=== PATIENT | male | born 1970 | race Two or more races ===

== ENCOUNTER 2016-08-20 21:46 | Emergency (ER) | payer OTHER ==
[~2016-08-20] VITALS: Ht 175.3 cm; Wt 135.6 kg
--- NOTE | 2016-08-20 21:57 | Emergency Room Report ---
History of Present Illness General Chief Complaint: Alcohol Intoxication Source: Patient, EMS Present Illness HPI Is a 46-year-old male with a history of alcohol abuse. He was picked up by EMS for alcohol intoxication. Initial history is limited because of intoxication. When he was more clinically sober, and is to drinking heavily. Does want to quit. Does not want to go to senior care or want senior care service. There is no trauma. He has been to multiple other hospitals based on the fact that he has heavy freedman, armbands, and EKG leads on him. Allergies: Coded Allergies: No Known Allergies (Unverified , 08/20/16) Patient History Past Medical History: see triage record, old chart reviewed Past Surgical History: other - laparotomy Pertinent Family History: none Social History: Reports: alcohol use Immunizations: other Reviewed Nursing Documentation: PMH: Agreed, PSxH: Agreed Nursing Documentation-PMH Hx Diabetes: Yes Review of Systems Eye: Denies: blurred vision, eye pain ENT: Denies: ear pain, nose congestion, throat swelling Respiratory: Denies: cough, shortness of breath Cardiovascular: Denies: chest pain, palpitations Gastrointestinal: Denies: abdominal pain, diarrhea, nausea, vomiting Musculoskeletal: Denies: back pain, joint pain Skin: Denies: rash Neurological: Denies: headache, numbness Endocrine: Denies: increased thirst, increased urine Hematologic/Lymphatic: Denies: easy bruising All Other Systems: limited - Secondary to intoxication Physical Exam Vital Signs Date Time Temp Pulse Resp B/P Pulse Ox O2 Delivery O2 Flow Rate FiO2 08/20/16 21:35 98.8 78 18 142/88 98 Room Air vitals normal Sp02 EP Interpretation: reviewed, normal General Appearance: well appearing, no apparent distress, other - Intoxicated Head: normocephalic, atraumatic Eyes: bilateral eye EOMI, bilateral eye PERRL ENT: hearing grossly normal, normal pharynx Neck: full range of motion, supple, no meningismus Respiratory: chest non-tender, lungs clear, normal breath sounds Cardiovascular #1: regular rate, rhythm, no murmur Gastrointestinal: normal bowel sounds, non tender, no mass, no organomegaly, no bruit, non-distended Musculoskeletal: back normal, normal range of motion, tender - He has an armband some of the hospital on. Skin: warm/dry Medical Decision Making Diagnostic Impression: Primary Impression: Acute alcoholic intoxication Qualified Codes: F10.120 - Alcohol abuse with intoxication, uncomplicated Additional Impression: Morbid obesity with BMI of 40.0-44.9, adult ER Course Patient presents with alcohol intoxication. After several hours he is now awake. He is becoming slightly tremulous. I gave him Librium. He does say that he wants to quit. He wants to leave now. So he doesn't want to stay. He is clinically sober to make that decision. Last Vital Signs Date Time Temp Pulse Resp B/P Pulse Ox O2 Delivery O2 Flow Rate FiO2 08/20/16 21:35 98.8 78 18 142/88 98 Room Air Status: improved Disposition: HOME, SELF-CARE Condition: Stable Scripts Chlordiazepoxide (Chlordiazepoxide HCl) 25 Mg Capsule 25 MG ORAL THREE TIMES A DAY, #15 CAP 0 Refills Prov: SEAN GONGORA M.D. 08/21/16 Patient Instructions: Alcohol Intoxication, [id number] Additional Instructions: Abstain from alcohol. Followup your Dr. in 7 days. Return if symptom worsen. A rehabilitation. SEAN GONGORA M.D. Aug 20, 2016 21:57
[2016-08-21] MEDS ORDERED: LIBRIUM25 MG ORAL (01:09)
[2016-08-21 01:14] VITALS: BP 142/88
[2016-08-21] MEDS ORDERED: chlordiazePOXIDE 25mg Cap ORAL ONE (01:15)
== END 2016-08-21 01:15 | disposition home or self-care (01) ==
LOC: EDBD 21:46 → EMR 21:59
DX: F10.120 Alcohol abuse with intoxication, uncomplicated (principal); E66.01 Morbid (severe) obesity due to excess calories; Z68.41 Body mass index [BMI] 40.0-44.9, adult; E11.9 Type 2 diabetes mellitus without complications
CPT/HCPCS: 99284

== ENCOUNTER → 2016-08-21 | Emergency (ER) | payer OTHER ==
[~2016-08-21] VITALS: Ht 180.3 cm; Wt 163.3 kg
[~2016-08-21] MED LIST: LIBRIUM25 MG ORAL
--- NOTE | 2016-08-21 04:16 | Emergency Room Report ---
History of Present Illness General Chief Complaint: Alcohol Intoxication Source: Patient, EMS Present Illness HPI Is a 46-year-old male whom I discharged couple hours ago. He came initially his intoxication. He was doing better and walking without any difficulty. He said he went to leave. He was discharged in was sleeping outside of a [employer] and was brought back in. He said that he went and bought alcohol there and drink it better. He denies any other complaint. Denies any nausea vomiting. Denies any fever or chills. Denies any trauma. Allergies: Coded Allergies: No Known Allergies (Unverified , 08/20/16) Patient History Past Medical History: see triage record, old chart reviewed Past Surgical History: other Pertinent Family History: none Social History: Reports: alcohol use Immunizations: other Reviewed Nursing Documentation: PMH: Agreed, PSxH: Agreed Nursing Documentation-PMH Past Medical History: No History, Except For Hx Diabetes: Yes Review of Systems Eye: Denies: blurred vision, eye pain ENT: Denies: ear pain, nose congestion, throat swelling Respiratory: Denies: cough, shortness of breath Cardiovascular: Denies: chest pain, palpitations Gastrointestinal: Denies: abdominal pain, diarrhea, nausea, vomiting Musculoskeletal: Denies: back pain, joint pain Skin: Denies: rash Neurological: Denies: headache, numbness Endocrine: Denies: increased thirst, increased urine Hematologic/Lymphatic: Denies: easy bruising All Other Systems: negative except mentioned in HPI Physical Exam Vital Signs Date Time Temp Pulse Resp B/P Pulse Ox O2 Delivery O2 Flow Rate FiO2 08/21/16 03:35 98.8 110 16 139/69 99 vitals with tachycardia Sp02 EP Interpretation: reviewed, normal General Appearance: well appearing, no apparent distress, alert Head: normocephalic, atraumatic Eyes: bilateral eye EOMI, bilateral eye PERRL ENT: hearing grossly normal, normal pharynx Neck: full range of motion, supple, no meningismus Respiratory: chest non-tender, lungs clear, normal breath sounds Cardiovascular #1: regular rate, rhythm, no murmur Gastrointestinal: normal bowel sounds, non tender, no mass, no organomegaly, no bruit, non-distended Musculoskeletal: back normal, gait/station normal, normal range of motion Psychiatric: mood/affect normal Skin: warm/dry Medical Decision Making Diagnostic Impression: Primary Impression: Acute alcoholic intoxication Qualified Codes: F10.120 - Alcohol abuse with intoxication, uncomplicated ER Course Patient with alcohol intoxication. No trauma. He wants to leave now but he is more intoxicated when he first left. I will here for a longer period we'll discharge home when he is more clinically sober. No evidence of any withdrawal. I did give him Librium before he left a few hours ago. Last Vital Signs Date Time Temp Pulse Resp B/P Pulse Ox O2 Delivery O2 Flow Rate FiO2 08/21/16 03:35 98.8 110 16 139/69 99 Status: improved Disposition: HOME, SELF-CARE Condition: Stable Patient Instructions: Alcohol Intoxication, [id number] Additional Instructions: abstain from alcohol. Followup your Dr. in 7 days. Return if worse. SEAN GONGORA M.D. Aug 21, 2016 04:16
[2016-08-21 04:24] VITALS: BP 139/69
== END | disposition home or self-care (01) ==
LOC: EDUNIT# 03:35 → EDBD 03:46 → EMR 04:10
DX: F10.120 Alcohol abuse with intoxication, uncomplicated (principal); E11.9 Type 2 diabetes mellitus without complications
CPT/HCPCS: 99284